=== PATIENT | female | born 1995 | race American Indian/Alaskan Native ===

== ENCOUNTER 2019-08-15 01:40 | Emergency (ER) | payer SELFPAY ==
[2019-08-15 01:52] VITALS: BP 126/89
--- NOTE | 2019-08-15 02:37 | XRay Report ---
CHEST 1 VIEW INDICATION: Chest Pain. COMPARISON: none FINDINGS: SUPPORT DEVICES: None. HEART / MEDIASTINUM: No significant abnormality. LUNGS / PLEURA: No significant pulmonary or pleural abnormality. No pneumothorax. ADDITIONAL FINDINGS: IMPRESSION: 1. No acute cardiopulmonary disease Signer Name: Uziel Garland MD Signed: 08/15/2019 2:33 AM Workstation Name: [id number]
[2019-08-15] MEDS ORDERED: KETOROLAC 60 MG/2 ML INJ IM ONE (03:54)
[2019-08-15] MEDS ORDERED: HYDROcodone/ACETAMINOPHEN 5-325 MG TAB PO ONE (03:54)
--- NOTE | 2019-08-15 03:59 | Emergency Department Report ---
ED Chest Pain HPI - General Chief Complaint: Chest Pain Stated Complaint: CHEST PAIN SOB Time Seen by Provider: 08/15/19 03:10 Source: patient Mode of arrival: Ambulatory Limitations: No Limitations - History of Present Illness Initial Comments: 24-year-old -Al[place] female patient without significant past medical history presents with complaints of substernal chest pain x4 days. She rates her pain as a 10/10 in severity and describes it as sharp and stabbing. Patient reports pain worsens with deep inhalation and movement of her torso. She denies any chest wall injury, however she does admit to heavy lifting at work daily. Patient also denies any hemoptysis, cough, history of DVT/PE, shortness of breath, leg pain/swelling, recent long travel/extended periods of sitting, history of cancer, hormone use, or recent surgeries. She denies trying any [id number] medication for pain. Severity scale (0 -10): 10 - Related Data Previous Rx's Medication Instructions Recorded Last Taken Type Ibuprofen [Motrin 800 MG tab] 800 mg PO Q8HR PRN #21 tablet 08/15/19 Unknown Rx methOCARBAMOL [Robaxin TAB] 1,500 mg PO Q8H PRN #30 tablet 08/15/19 Unknown Rx Allergies Allergy/AdvReac Type Severity Reaction Status Date / Time No Known Allergies Allergy Verified 08/15/19 01:46 Heart Score - HEART Score History: Slightly suspicious EKG: Normal Age: < 45 Risk factors: 1-2 risk factors Troponin: < normal limit HEART Score: 1 - Critical Actions Critical Actions: 0-3 pts:0.9-1.7%risk of adverse cardiac event.Candidate for discharge (troponin not completed) ED Review of Systems ROS: Stated complaint: CHEST PAIN SOB Other details as noted in HPI ED Past Medical Hx - Past Medical History Previous Medical History?: Yes Hx Asthma: Yes - Surgical History Past Surgical History?: No - Social History Smoking Status: Current Every Day Smoker Substance Use Type: Alcohol, Marijuana - Medications Home Medications: Home Medications Medication Instructions Recorded Confirmed Last Taken Type Ibuprofen [Motrin 800 MG tab] 800 mg PO Q8HR PRN #21 tablet 08/15/19 Unknown Rx methOCARBAMOL [Robaxin TAB] 1,500 mg PO Q8H PRN #30 tablet 08/15/19 Unknown Rx ED Physical Exam - General Limitations: No Limitations General appearance: alert, in no apparent distress - Head Head exam: Present: atraumatic, normocephalic - Eye Eye exam: Present: normal appearance - ENT ENT exam: Present: mucous membranes moist - Neck Neck exam: Present: normal inspection, full ROM - Respiratory Respiratory exam: Present: normal lung sounds bilaterally, chest wall tenderness (lower parasternal ). Absent: respiratory distress, wheezes, rales, rhonchi - Cardiovascular Cardiovascular Exam: Present: regular rate, normal rhythm. Absent: systolic murmur, diastolic murmur, rubs, gallop - GI/Abdominal GI/Abdominal exam: Present: soft. Absent: distended, tenderness - Extremities Exam Extremities exam: Present: normal inspection, full ROM. Absent: calf tenderness (No swelling/edema noted bilaterally. No tenderness noted of upper legs bilaterally) - Back Exam Back exam: Present: normal inspection, full ROM - Neurological Exam Neurological exam: Present: alert, oriented X3, normal gait - Psychiatric Psychiatric exam: Present: normal affect, normal mood - Skin Skin exam: Present: warm, dry, intact, normal color. Absent: rash, cyanosis, diaphoretic, ecchymosis ED Course Vital Signs 08/15/19 08/15/19 08/15/19 01:51 04:12 04:14 Temperature 98.3 F Pulse Rate 100 H Respiratory 18 20 20 Rate Blood Pressure 126/89 [Right] O2 Sat by Pulse 100 Oximetry 08/15/19 08/15/19 08/15/19 04:44 05:00 05:12 Temperature Pulse Rate 82 Respiratory 20 20 20 Rate Blood Pressure [Right] O2 Sat by Pulse 98 Oximetry ED Medical Decision Making - Radiology Data Radiology results: report reviewed CHEST 1 VIEW INDICATION: Chest Pain. COMPARISON: none FINDINGS: SUPPORT DEVICES: None. HEART / MEDIASTINUM: No significant abnormality. LUNGS / PLEURA: No significant pulmonary or pleural abnormality. No pneumothorax. ADDITIONAL FINDINGS: IMPRESSION: 1. No acute cardiopulmonary disease Signer Name: Uziel Garland MD Signed: 08/15/2019 2:33 AM Workstation Name: [id number] - Medical Decision Making Patient here with complaints of substernal chest pain. PERC score = 0, Wells score = 0. Chest x-ray is normal. Pain is reproducible with palpation and occurs mostly with an inhalation. Suspect costochondritis as cause of patient's symptoms. Her vitals are normal. Pulse ox is at 100%. Patient states symptoms have significantly improved with Toradol and [place]. She is well- appearing and stable for discharge home. Recommend follow-up with primary care provider in 3 days. Strict return precautions were discussed in great detail with patient who verbalizes understanding. Critical care attestation.: If time is entered above; I have spent that time in minutes in the direct care of this critically ill patient, excluding procedure time. ED Disposition Clinical Impression: Costochondritis, acute Disposition: DC-01 TO HOME OR SELFCARE Is pt being admited?: No Condition: Stable Instructions: Costochondritis (ED) Prescriptions: Ibuprofen [Motrin 800 MG tab] 800 mg PO Q8HR PRN #21 tablet PRN Reason: pain methOCARBAMOL [Robaxin TAB] 1,500 mg PO Q8H PRN #30 tablet PRN Reason: muscle tightness Referrals: PRIMARY CARE, [Primary Care Provider] - 3-5 Days Forms: Work/School Release Form(ED) ED Chest pain MDM - Wells Criteria Clinical Symptoms of DVT: (0) No No Alternative Diagnosis: (0) No Immobilization of Surgery in Previous 4 Weeks: (0) No Previous DVT/PE: (0) No Hemoptysis: (0) No Malignancy: (0) No - PERC Rule Heart Rate < 100: (0) No O2 Sat on Room Air > .94%: (0) No No Prior History pf DVT/PE: (0) No No Recent Trauma or Surgery: (0) No Hemoptysis: (0) No No Exogenous Estrogen: (0) No No Clinical Signs Suggesting DVT: (0) No
== END 2019-08-15 05:40 | disposition home or self-care (01) ==
LOC: ED 01:40
DX: M94.0 Chondrocostal junction syndrome [Tietze] (principal); J45.909 Unspecified asthma, uncomplicated; F17.200 Nicotine dependence, unspecified, uncomplicated; F12.10 Cannabis abuse, uncomplicated; Z79.899 Other long term (current) drug therapy
CPT/HCPCS: 71045; 93005; 93010; 96372; 99283; J1885